=== PATIENT | male | born 1960 | race Caucasian/White ===

== ENCOUNTER → 2020-11-28 | Outpatient (CLI) | payer MEDICARE, OTHER ==
[~2020-11-28] MED LIST: ALOE VERA PAIN454 GM TP; BACLOFEN20 MG PO; BACTROBAN OINT22 GM EXT; CLARITIN10 MG PO; ENDOCET 10-3251 EACH PO; FLONASE 0.05% N16 GM; HYDROXYZINE HCL50 MG PO; IBUPROFEN600 MG PO; KEFLEX500 MG PO; KLONOPIN TAB 00.5 MG PO; LEXAPRO5 MG PO; MS CONTIN30 MG PO; MS CONTIN60 MG PO; NEURONTIN600 MG PO; PERCOCET 10-321 EACH PO; PHENERGAN 25 MG25 M1 PO; PROTONIX 40 MG40 M1 PO; SINGULAIR10 MG PO; TESTOSTERON100 MG/ML IM; TOPAMAX25 MG PO; TORADOL 10 MG T10 MG PO; VITAMIN D250000 UNIT PO; ZANTAC150 MG PO; ZOFRAN4 MG PO; ZONEGRAN100 MG PO
[2020-11-28 13:05] LABS: HEMOGLOBIN 11.5 gm/dl (14.0-17.5); RED BLOOD COUNT 4.99 M/UL (4.20-5.50); WHITE BLOOD COUNT 5.6 K/UL (4.5-11.0)
[2020-11-28 13:23] LABS: BUN/CREATININE RATIO 12 (0-10)
== END ==
LOC: OPSV2 11:55 → EDSTATUS 12:00 → OPSV2 12:00
PROVIDERS: Orthopaedic Surgery
DX: Z01.818 Encounter for other preprocedural examination (principal); M17.12 Unilateral primary osteoarthritis, left knee
CPT/HCPCS: 36415; 71046; 80048; 81001; 85025; 87081

== ENCOUNTER → 2021-01-20 | Outpatient (CLI) | payer MEDICARE, OTHER ==
[2021-01-20 11:51] LABS: HEMOGLOBIN 11.5 gm/dl (14.0-17.5); RED BLOOD COUNT 4.82 M/UL (4.20-5.50)
[2021-01-20 12:07] LABS: BUN/CREATININE RATIO 18 (0-10)
== END ==
LOC: OPSV2 10:55 → EDSTATUS 11:00
PROVIDERS: Orthopaedic Surgery
DX: Z01.818 Encounter for other preprocedural examination (principal); M17.12 Unilateral primary osteoarthritis, left knee; R94.31 Abnormal electrocardiogram [ECG] [EKG]; I45.10 Unspecified right bundle-branch block
CPT/HCPCS: 36415; 80048; 81001; 85025; 93005

== ENCOUNTER → 2021-01-29 | Outpatient (CLI) | payer MEDICARE, SELFPAY ==
[2021-01-29 14:20] LABS: BUN/CREATININE RATIO 17 (0-10)
== END ==
LOC: LAB 12:48
PROVIDERS: Orthopaedic Surgery
DX: Z01.812 Encounter for preprocedural laboratory examination (principal)
CPT/HCPCS: 36415; 80048; 86850; 86900; 86901

== ENCOUNTER → 2021-01-30 | Day surgery (SDC) | payer MEDICARE, SELFPAY ==
[~2021-01-30] VITALS: Ht 182.9 cm; Wt 102.5 kg
--- NOTE | 2021-01-30 17:01 | NUR ---
PT SENT HOME WITH WALKER AND INSTRUCTED ON F/U APPOINTMENTS AND RECOMMENDATION FOR THERAPY
== END | disposition home or self-care (01) ==
LOC: OR 08:22 → EDSTATUS 10:30
PROVIDERS: Orthopaedic Surgery
PROC: 0SRD0M9 Replacement of Left Knee Joint with Lateral Unicondylar Synthetic Substitute, Cemented, Open Approach (ICD-10-PCS; principal; 2021-01-30 10:30)
PROC: 3E0T3BZ Introduction of Anesthetic Agent into Peripheral Nerves and Plexi, Percutaneous Approach (ICD-10-PCS; principal; 2021-01-30 10:30)
DX: M17.12 Unilateral primary osteoarthritis, left knee (principal); G89.18 Other acute postprocedural pain; K21.9 Gastro-esophageal reflux disease without esophagitis; G47.30 Sleep apnea, unspecified; Z86.73 Personal history of transient ischemic attack (TIA), and cerebral infarction without residual deficits; Z88.8 Allergy status to other drugs, medicaments and biological substances; Z79.899 Other long term (current) drug therapy; Z20.822 Contact with and (suspected) exposure to COVID-19; Z88.6 Allergy status to analgesic agent; Z79.890 Hormone replacement therapy; Z79.1 Long term (current) use of non-steroidal anti-inflammatories (NSAID); Z79.891 Long term (current) use of opiate analgesic
CPT/HCPCS: 73560; 97161; C1713; C1776; J0592; J0690; J1100; J2001; J2250; J2704; J2795; J3010; J7120

== ENCOUNTER → 2021-06-05 | Outpatient (CLI) | payer MEDICARE, SELFPAY ==
[2021-06-05 14:44] LABS: RED BLOOD COUNT 4.4 M/UL (4.20-5.50); WHITE BLOOD COUNT 3.2 K/UL (4.5-11.0)
[2021-06-05 15:26] LABS: BUN/CREATININE RATIO 18 (0-10)
== END ==
LOC: LAB 13:35
PROVIDERS: Nurse Practitioner Family
DX: I10 Essential (primary) hypertension (principal); Z13.220 Encounter for screening for lipoid disorders; E55.9 Vitamin D deficiency, unspecified; R35.1 Nocturia; F41.9 Anxiety disorder, unspecified
CPT/HCPCS: 36415; 80053; 80061; 81001; 84153; 84439; 84443; 85025

== ENCOUNTER → 2021-08-08 | Outpatient (CLI) | payer MEDICARE, SELFPAY | LOC: RAD 15:52 | DX: M25.551 Pain in right hip (principal); M25.552 Pain in left hip | CPT/HCPCS: 73522 ==